=== PATIENT | male | born 1980 ===

== ENCOUNTER → 2019-01-05 | Outpatient (REF) ==
--- NOTE | 2019-01-05 09:59 | RADIOLOGY IMAGING REPORT ---
FACILITY: [facility] PATIENT NAME: Shanthi Hugo : 1980 MR: [id number] V: [id number] EXAM DATE: ORDERING PHYSICIAN: LORNA FARNSWORTH TECHNOLOGIST: Location: [facility] - [place] Patient: Shanthi Hugo : 1980 Visit/Account:[id number] Date of Sevice: 01/05/2019 L-SPINE 2 OR 3 VIEW HISTORY: Back pain AP and lateral lumbar spine films. FINDINGS: Vertebral bodies well-maintained with respect to height. No compression deformities or fractures. D isc spaces well-maintained at all levels with no disc space narrowing or degenerative changes. Poste rior months well-maintained alignment with no facet arthropathy. No spondylolysis. No spondylolisth esis. AP film demonstrates no scoliosis. SI joints are unremarkable. Visualized pelvis sacrum and coccyx are grossly normal. There are round jenny calcific bony ossicles posterior to the sacrum of varying sizes from one up to 2 cm in size Nonspecific bowel gas pattern. No abnormal calcifications. IMPRESSION: 1. Unremarkable lumbar spine for acute bony pathology. 2. Bony ossicles posterior to the sacrum and proximal coccyx Report Dictated By: Lexa Gale MD at 01/05/2019 9:38 AM Report E-Signed By: Lexa Gale MD at 01/05/2019 9:50 AM WSN:[id number]
--- NOTE | 2019-01-05 10:02 | RADIOLOGY IMAGING REPORT ---
[place] [facility] [place] Shanthi Hugo : 1980 MR: [id number] V: [id number] EXAM DATE: ORDERING PHYSICIAN: LORNA FARNSWORTH TECHNOLOGIST: Location: [facility] - [place] Patient: Shanthi Hugo : 1980 Visit/Account:[id number] Date of Sevice: 01/05/2019 XR THORACIC SPINE 3 V AP and lateral thoracic spine films. FINDINGS: Vertebral bodies well-maintained. No compression deformities or fractures. Disc spaces well-maintai joao with no disc space narrowing or degenerative changes of any significance. Minimal anterior endpl ate osteophyte lipping changes noted within the thoracic spine. Posterior elements well-maintained a nd aligned. AP film demonstrates no thoracic scoliosis. Paravertebral soft tissues are unremarkable . IMPRESSION: 1. Minimal thoracic DJD changes. Report Dictated By: Lexa Gale MD at 01/05/2019 9:50 AM Report E-Signed By: Lexa Gale MD at 01/05/2019 9:53 AM WSN:[id number]
== END ==
LOC: RAD 09:13
PROVIDERS: ATTEND Family Medicine
DX: M54.6 Pain in thoracic spine (principal); M54.5 Low back pain
CPT/HCPCS: 72072; 72100